=== PATIENT | female | born 1950 | race Caucasian/White ===

== ENCOUNTER → 2020-12-07 | Outpatient (CLI) | payer OTHER ==
[~2020-12-07] MED LIST: PROHANCE 279.3MG/ML 15ML VIAL As Ordered ONE
[2020-12-07 13:13] LABS: BASO % 0.4 % (0.0-1.0); HEMATOCRIT 41.4 % (36.0-47.0); HEMOGLOBIN 13.2 g/dl (12.0-15.5); LYMPH # 1.7 10^3/uL (1.5-5.0); LYMPH % 29.5 % (24.0-44.0); MEAN CORPUSCULAR HEMOGLOBIN 29.8 pg (27.0-33.0); MEAN CORPUSCULAR HGB CONC 31.9 g/dl (32.0-36.5); MEAN CORPUSCULAR VOLUME 93.5 fl (80.0-96.0); MONO # 0.3 10^3/uL (0.0-0.8); MONO % 5.7 % (2.0-8.0); NEUTROPHILS # 3.6 10^3/uL (1.5-8.5); NEUTROPHILS % 64.2 % (36.0-66.0); PLATELET COUNT, AUTOMATED 297 10^3/uL (150-450); RED BLOOD COUNT 4.43 10^6/uL (4.00-5.40); WHITE BLOOD COUNT 5.7 10^3/uL (4.0-10.0)
[2020-12-07 14:43] LABS: ALBUMIN 3.6 GM/DL (3.2-5.2); BILIRUBIN,TOTAL 0.6 MG/DL (0.2-1.0); CALCIUM LEVEL 9.1 MG/DL (8.8-10.2); CREATININE FOR GFR 1.01 MG/DL (0.55-1.30); POTASSIUM SERUM 4.1 MEQ/L (3.5-5.1); TOTAL PROTEIN 7.2 GM/DL (6.4-8.2)
--- NOTE | 2020-12-07 19:16 | REPVR ---
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 Contrast material: PROHANCE; Contrast volume: 7 ml; Contrast route: INTRAVENOUS (IV); COMPARISON: No relevant prior studies available. FINDINGS: Vertebrae: There is mild wedging of the anterior margins of T7 through T9 and abnormal signal in the superior endplate of T10 as well as T7 through T9 vertebral bodies. There is also endplate degeneration and disc space narrowing at T7-8 through T9-10 levels. Endplate degeneration appears most prominent at T7-T8 with mild enhancement post gadolinium. The bone marrow at these levels is heterogeneous with possible sclerosis of the T7-T8 endplates. Epidural space: No evidence of epidural tumor or abscess. Spinal cord: Normal signal. No cord compression. Discs/Spinal canal/Neural foramina: See "Vertebrae" finding. Soft tissues: No significant paraspinous soft tissue abnormality at the T7-T8 through T9-10 levels. IMPRESSION: There is mild wedging T7 through T9 vertebral bodies with degeneration of the intervening discs and abnormal signal within the bone marrow which could be due to degeneration. No definite evidence of discitis/osteomyelitis or metastatic disease. No compression of the thoracic spinal cord or evidence of epidural tumor. No significant abnormal enhancement. Bone marrow signal does not have the appearance of radiation change. Electronically signed by: Marquita Xiong On 12/07/2020 19:16:18 PM
== END ==
LOC: M RAD 12:04
PROVIDERS: ATTEND Internal Medicine Hematology & Oncology
DX: C50.412 Malignant neoplasm of upper-outer quadrant of left female breast (principal)
CPT/HCPCS: 36415; 72157; 80053; 85025; A9576

== ENCOUNTER 2020-12-14 08:30 | Outpatient (RCR) | payer OTHER | END 2020-12-19 | LOC: M PT 08:30 | DX: I89.0 Lymphedema, not elsewhere classified (principal) ==

== ENCOUNTER → 2020-12-27 | Outpatient (CLI) | payer OTHER ==
[~2020-12-27] MED LIST changes: +GABA-282 PO; +LETR2.5T2 PO; +LEVO100T5 PO; -PROHANCE 279.3MG/ML 15ML VIAL As Ordered ONE
--- NOTE | 2020-12-27 11:13 | REP ---
INDICATION: RT WRIST NODULE ? MASS VS CYST W/BREAST CA. COMPARISON: None. TECHNIQUE: Ultrasonography of the dorsal surface of the right wrist over a palpable abnormality. FINDINGS: In the deep subcutanea there is a 3 x 3 x 7 mm sized oval/possible tubular shaped structure with complex internal echoes. IMPRESSION: Complex somewhat cystic and somewhat solid-appearing subcutaneous structure in the dorsum of the right wrist as described above. The etiology is uncertain. Consider pre and post gadolinium enhanced MRI. <Electronically signed by aLwson Salcedo > 12/27/20 [id number]
== END ==
LOC: M RAD 10:32
PROVIDERS: ATTEND Internal Medicine Medical Oncology
DX: M25.831 Other specified joint disorders, right wrist (principal)

== ENCOUNTER → 2021-01-17 | Outpatient (CLI) | payer OTHER ==
[~2021-01-17] MED LIST changes: +PROHANCE 279.3MG/ML 15ML VIAL As Ordered ONE
--- NOTE | 2021-01-18 08:26 | REP ---
INDICATION: MASS, RT WRIST. Small mass in the dorsum of the wrist. COMPARISON: Comparison sonography December 27, 2020.. TECHNIQUE: A skin marker is affixed to the dorsal skin at the site of the palpable abnormality. Axial, coronal, and sagittal imaging planes utilized. T1, and T2 weighted scans are obtained with without fat saturation. Gadolinium enhancement dose is 13 mL of intravenous ProHance and post gadolinium enhanced imaging is acquired in all 3 planes as well. FINDINGS: Cortical and medullary bone signal intensity are normal. There is no evidence of significant joint effusion. Triangular fibrocartilage appears intact. Joint spaces are preserved. The flexor and extensor tendons are intact. No significant tendon sheath effusion is seen. Underlying the gel capsule skin marker, there is a small subcutaneous oval-shaped lesion superficial to the extensor tendons at the ulnar aspect of the wrist overlying the distal ulna. This measures 6 x 6 by 3 mm and corresponds to the nodule seen on ultrasound. This lesion is T1 hyperintense and T2 hyperintense although it is quite small and difficult to characterize. Because it is so hyperintense on pre yael T1, I do not believe there is significant enhancement. On axial T1 weighted scans, the lesion appears to align with the a linear vascular structure although it may be adjacent to this. I do not resolve a connection to a tendon sheath or a joint space. IMPRESSION: 6 mm superficial subcutaneous nodule overlying the distal ulna which is difficult to characterize because of its small size. No definite contrast enhancement. Nonspecific findings. Differential possibilities include proteinaceous fluid containing lesion such as ganglion cyst, hematoma, vascular thrombus and neoplasm. Clinical follow-up is advised.. <Electronically signed by Noel Ramos > 01/18/21 [id number]
== END ==
LOC: M RAD 15:50
PROVIDERS: ATTEND Internal Medicine Medical Oncology
DX: R22.31 Localized swelling, mass and lump, right upper limb (principal)
CPT/HCPCS: 73223; A9576

== ENCOUNTER 2021-01-18 10:00 | Outpatient (RCR) | payer OTHER ==
[~2021-01-18 10:00] MED LIST changes: -PROHANCE 279.3MG/ML 15ML VIAL As Ordered ONE
== END 2021-01-19 | disposition still patient (30) ==
LOC: M PT 10:00
DX: I89.0 Lymphedema, not elsewhere classified (principal)

== ENCOUNTER → 2021-02-07 | Outpatient (CLI) | payer OTHER ==
[~2021-02-07] MED LIST changes: +NEUR600T PO
--- NOTE | 2021-02-07 13:29 | RADONC.CN ---
Radiation Oncology Hx/Consult Radiation Oncology Consult Date of Service: Feb 07, 2021 Pt Identifier Jennifer Bowen is a 70 year old female current smoker with a history of left breast cancer [id number] ER+ OR/HER2- Grade 3 stage IIA. She had a clinically apparent LN at diagnosis which was biopsy proven. She is s/p BL mastectomy and left SLNB on 10/12/20 1/3 nodes positive, margins negative. Oncotype score was 38. She subsequently declined adjuvant chemotherapy and has started Femara. She is seen today for consideration of PMRT. Diagnosis/Treatment History Oncologic History Patient had screening CT chest in 08/16/20 which showed a left axillary enlarged node 3 cm. Mammogram on 08/17/20 showed a left breast mass. Biopsy showed IDC grade 3 ER+ OR/HER2-. She had BL mastectomies on 10/12/20 [id number] margins negative 1/3 LN+. She had delayed wound healing. Oncotype score was 38. She declined adjuvant chemotherapy after multiple opinions. She started Femara in December 2020. Breast history: 1st @ 20, 1 interrupted Menses @ 15 Menopause @ 53 OCP use 4 years HRT since menopause through diagnosis No IVF Interval History Here with her sister. Reports that she is tolerating femara well, thinks it has improved her mood. No longer taking HRT. No pain in the chest or UE BL. She had delayed healing of her mastectomy incisions, only just healed. She continues to smoke. She has no current desire for reconstruction. Appetite good and weight stable. Past Medical History: Hypothyroidism Past Surgical History: Tonsillectomy Family History: Mother breast cancer Social History: 50 pack year current smoker 1ppd Drinks occasionally Allergies / Meds Allergies: Coded Allergies: NSAIDS (Non-Steroidal Anti-Inflamma (Verified Allergy, Unknown, LIVER ISSUES, 12/27/20) Home Meds Active Scripts Letrozole (Letrozole) 2.5 Mg Tablet, 2.5 MG PO DAILY for 90 Days, #90 TAB 3 Refills Prov:MILTON SUAZO MD 12/27/20 Reported Medications Gabapentin (Neurontin) 600 Mg Tablet, 600 MG PO, TAB 02/07/21 Levothyroxine Sodium (LEVOTHYROXINE SODIUM) 100 Mcg Tablet, 1 TAB PO DAILY 12/27/20 Discontinued Reported Medications Gabapentin (Gabapentin) 300 Mg Capsule, 1 CAP PO TID 12/27/20 Review of Systems Constitutional: Denies: Chills, Fever, Weight Loss Eyes: Denies: Pain HEENT: Denies: Head Aches Skin: Denies: Rash Pulmonary: Denies: Dyspnea, Cough Cardiovascular: Denies: Chest Pain, Palpitations Gastrointestinal: Denies: Nausea, Vomiting Hematologic: Denies: Bruising, Bleeding Excessively Endocrine: Denies: Cold Intolerance Musculoskeletal: Denies: Neck pain, Arm pain, Hand pain Neurological: Denies: Weakness, Numbness Psych: Reports: Mood Normal Vital Signs Wt 152 lbs T 96.2 P 56 RR 20 BP 119/73 O2 99% Pain 0 Fatigue 0 General Exam: Alert, Cooperative, No Acute Distress Eye Exam: PERRLA, EOMI ENT EXAM: Atraumatic Neck Exam: Supple; Negative: Lymphadenopathy Chest Exam: Clear to auscultation Heart Exam: Rate Normal Breast Exam: Other Breast Findings (BL mastecomy incisions, deeply furrowed, incisions closed. No drainage. No axillary lesions BL, CW skin without lesions. ) Extremity Exam: Negative: Edema Skin Exam: Nl turgor and temperature Neuro Exam: Normal Gait, Normal Speech, Cranial Nerves 3-12 NL Psych Exam: Mental status NL Diagnostic and Laboratory Diagnostic Review Radiologic images, relevant labs and pathology reports were personally reviewed and discussed with Ms. Bowen. Assessment and Plan Impression Ms. Bowen is a 70 year old female with a history of current smoker with a his tory of left breast cancer [id number] ER+ OR/HER2- Grade 3 stage IIA. She had a clinically apparent LN at diagnosis which was biopsy proven. She is s/p BL mastectomy and left SLNB on 10/12/20 1/3 nodes positive, margins negative. Oncotype score was 38. She subsequently declined adjuvant chemotherapy and has started Femara. She is seen today for consideration of PMRT. Stage left breast cancer [id number] ER+ OR/HER2- Grade 3 stage IIA Performance Status ECOG 0 Plan We had an extensive discussion with Ms. Bowen regarding the diagnosis at hand and available therapeutic options. She has healed from her mastectomies with some difficulty, discussed this is likely related to tobacco use. On exam however she is fit for RT at this time. She declined adjuvant chemotherapy, this combined with her pathologic findings warrant PMRT. I recommend 50.4 Gy in 28 fractions with VMAT and DIBH technique to adequately treat the node bearing areas (including the IMNs) and limit doses to adjoining critical structures like heart, LAD, and lung. We discussed the logistics of receiving radiation therapy in detail including the need for a 1-time planning session. This can occur next week. She has travel south planned for 04/05/21 therefore we will work to expedite her care. We discussed the side effects of RT including skin reaction, fatigue, and internal scarring (fibrosis). We also discussed smoking cessation for 4 minutes. She is not ready for a quit attempt at this time. She will consider it in the future. After discussing the risks, benefits and alternatives to radiation therapy, Ms. Bowen was amenable to pursuing radiotherapy. All questions were answered to the patient's satisfaction. We instructed the patient that if there were any questions,concerns or changes in clinical status in the interim to contact us. Recommendations PMRT 50.4 Gy in 28 fractions with VMAT/DIBH Simulation next week Has pending travel south on 04/05/21 Billing Statement Total time of [47] minutes was spent preparing for the visit [3], obtaining HPI [8], examining the patient [5], reviewing diagnostic tests [7], discussing management options [11], coordinating care [2], and writing this note [7]. ALLISON DALEY MD Feb 07, 2021 13:29
== END ==
LOC: M ONCR 08:54
PROVIDERS: ATTEND General Practice
DX: C50.912 Malignant neoplasm of unspecified site of left female breast (principal); F17.210 Nicotine dependence, cigarettes, uncomplicated; Z79.890 Hormone replacement therapy; Z79.899 Other long term (current) drug therapy; Z80.3 Family history of malignant neoplasm of breast; Z88.6 Allergy status to analgesic agent; Z90.13 Acquired absence of bilateral breasts and nipples

== ENCOUNTER 2021-02-15 10:44 | Outpatient (RCR) | payer OTHER ==
[2021-02-28] MEDS ORDERED: LEVO88TA3 PO (19:05)
[2021-03-07] MEDS ORDERED: PREN1CHW6 PO (11:08)
[2021-03-12] MEDS ORDERED: LETR2.5T2 PO (14:29)
[2021-03-12] MEDS ORDERED: LEVO88TA3 PO (14:29)
[2021-03-14] MEDS ORDERED: MAGICMW SSP (10:19)
[2021-03-27] MEDS ORDERED: ANAS1TAB2 PO (11:45)
[2021-03-27] MEDS ORDERED: ALEN70TA82 PO (11:52)
[2021-04-01] MEDS ORDERED: OXYC-517 PO (10:59)
[2021-04-01] MEDS ORDERED: PRED20TA PO (10:59)
[2021-05-31] MEDS ORDERED: LEVO88TA3 PO (16:03)
== END 2021-02-19 | disposition home or self-care (01) ==
LOC: M PT 10:44
PROVIDERS: ATTEND Surgery
DX: I89.0 Lymphedema, not elsewhere classified (principal)

== ENCOUNTER 2021-02-15 14:29 | Outpatient (RCR) | payer OTHER ==
[2021-02-28] MEDS ORDERED: LEVO88TA3 PO (19:05)
[2021-03-07] MEDS ORDERED: PREN1CHW6 PO (11:08)
[2021-03-12] MEDS ORDERED: LEVO88TA3 PO (14:29)
[2021-03-12] MEDS ORDERED: LETR2.5T2 PO (14:29)
[2021-03-14] MEDS ORDERED: MAGICMW SSP (10:19)
[2021-03-27] MEDS ORDERED: ANAS1TAB2 PO (11:45)
[2021-03-27] MEDS ORDERED: ALEN70TA82 PO (11:52)
[2021-04-01] MEDS ORDERED: PRED20TA PO (10:59)
[2021-04-01] MEDS ORDERED: OXYC-517 PO (10:59)
[2021-05-31] MEDS ORDERED: LEVO88TA3 PO (16:03)
== END 2021-02-19 ==
LOC: M ONCR 14:29
PROVIDERS: ATTEND General Practice
DX: C50.112 Malignant neoplasm of central portion of left female breast (principal)

== ENCOUNTER → 2021-02-27 | Outpatient (CLI) | payer OTHER ==
[~2021-02-27] MED LIST changes: +LEVO88TA3 PO
--- NOTE | 2021-02-27 12:04 | DEXAMM ---
INDICATION: ON AI THERAPY/BREAST CA/POSSIBLE OSTEOPENIA. COMPARISON: None. TECHNIQUE: Bone density was measured using dual-energy x-ray absorptiometry (DEXA). FINDINGS: AP SPINE L1-L4 BMD 1.122 g/cm2 Young Adult T-Score -0.6 Age Matched Z-Score 1.1. LT FEMUR, TOTAL BMD 0.777 g/cm2 Young Adult T-Score -1.8 Age Matched Z-Score -0.5. LT NECK BMD 0.744 g/cm2 Young Adult T-Score -2.1 Age Matched Z-Score -0.5. RT FEMUR, TOTAL BMD 0.761 g/cm2 Young Adult T-Score -2.0 Age Matched Z-Score -0.6. RT NECK BMD 0.755 g/cm2 Young Adult T-Score -2.0 Age Matched Z-Score -0.4. IMPRESSION: There is normal bone density of the spine. There is low bone density of the left hip. There is low bone density of the right hip. FOLLOW-UP: Recommendation for the next bone density exam: 2 years. <Electronically signed by Krzysztof Pearl > 02/27/21 1200
== END ==
LOC: M WHC 10:04
PROVIDERS: ATTEND Internal Medicine Medical Oncology
DX: M81.0 Age-related osteoporosis without current pathological fracture (principal)

== ENCOUNTER → 2021-03-21 | Outpatient (RCR) | payer OTHER ==
[~2021-03-21] MED LIST changes: +MAGICMW SSP; +PREN1CHW6 PO
== END | disposition home or self-care (01) ==
LOC: M PT 03-06 09:00
DX: I89.0 Lymphedema, not elsewhere classified (principal)

== ENCOUNTER → 2021-03-21 | Outpatient (RCR) | payer OTHER | LOC: M ONCR 02-21 13:31 | PROVIDERS: ATTEND General Practice | DX: C50.112 Malignant neoplasm of central portion of left female breast (principal) ==

== ENCOUNTER 2021-04-03 10:25 | Outpatient (RCR) | payer OTHER ==
[~2021-04-03 10:25] MED LIST changes: +ALEN70TA82 PO; +ANAS1TAB2 PO; +OXYC-517 PO; +PRED20TA PO
[2021-04-04] MEDS ORDERED: ANAS1TAB2 PO (16:18)
[2021-04-11] MEDS ORDERED: OXYC-517 PO (13:49)
== END 2021-04-21 ==
LOC: M ONCR 10:25
PROVIDERS: ATTEND General Practice
DX: C50.112 Malignant neoplasm of central portion of left female breast (principal); L59.8 Other specified disorders of the skin and subcutaneous tissue related to radiation
CPT/HCPCS: 77336; 77385; G0463

== ENCOUNTER → 2021-04-11 | Outpatient (CLI) | payer OTHER ==
--- NOTE | 2021-04-11 13:49 | RADENCPD ---
Date/Time of Encounter Date of Encounter: Apr 11, 2021 Time of Encounter: 13:46 Encounter Jennifer came in for a skin check today. She reports ongoing pain under the left axilla and superolateral left chest. The oxycodone helps she is taking it BID with good effect. She is continuing aquaphor to the affected skin. On exam she has a patch of moist desquamation in the left axilla, no re- epithelialization noted as of yet. The left chest is hyperpigmented with dry peeling. Assessment: Ongoing CTCAE grade 2 skin reaction Plan: Polymem foam to left axilla daily. Continue aquaphor to remainder of affected skin. Continue oxycodone PRN. Follow up in 2 weeks. ALLISON DALEY MD Apr 11, 2021 13:49
== END ==
LOC: M ONCR 13:11
PROVIDERS: ATTEND General Practice
DX: C50.112 Malignant neoplasm of central portion of left female breast (principal); L57.9 Skin changes due to chronic exposure to nonionizing radiation, unspecified; Z92.3 Personal history of irradiation

== ENCOUNTER → 2021-04-15 | Outpatient (CLI) | payer OTHER ==
--- NOTE | 2021-04-19 15:01 | REP ---
INDICATION: BREAST CA. COMPARISON: 08/31/2020 [facility]. TECHNIQUE: CT chest performed without the use of intravenous contrast. Sagittal and coronal reconstruction images are performed. FINDINGS: Lungs: No infiltrate is seen in either lung. There is no suspicious nodule. Mediastinum: No gross adenopathy. Miriam: No gross adenopathy. Axilla: No gross adenopathy. Pleura: No effusion. Heart: Not enlarged. Thoracic aorta: No aneurysm. Upper abdominal structures: Grossly unremarkable. Visualized osseous structures: There are degenerative changes of the spine. The sclerosis in the T7 through T10 vertebral bodies is unchanged.. Multiple metallic clips are seen throughout the chest wall and axillary regions status post bilateral mastectomy. IMPRESSION: No pulmonary nodule. No evidence of adenopathy. Sclerosis in the T7 through T10 vertebral bodies is unchanged. Status post bilateral mastectomy. <Electronically signed by Krzysztof Pearl > 04/19/21 [id number]
== END ==
LOC: M RAD 13:14
PROVIDERS: ATTEND Nurse Practitioner Adult Health
DX: C50.912 Malignant neoplasm of unspecified site of left female breast (principal); Z90.13 Acquired absence of bilateral breasts and nipples

== ENCOUNTER 2021-04-18 09:15 | Outpatient (RCR) | payer OTHER | END 2021-04-21 | LOC: M PT 09:15 | DX: I89.0 Lymphedema, not elsewhere classified (principal) ==

== ENCOUNTER 2021-04-23 10:09 | Outpatient (RCR) | payer OTHER ==
[2021-05-21] MEDS ORDERED: ONDA-83 PO (14:53)
[2021-05-31] MEDS ORDERED: LEVO88TA3 PO (16:03)
[2021-07-30] MEDS ORDERED: LEVO88TA3 PO (08:14)
== END 2021-05-21 | disposition home or self-care (01) ==
LOC: M PT 10:09
PROVIDERS: ATTEND Surgery
DX: I89.0 Lymphedema, not elsewhere classified (principal)

== ENCOUNTER → 2021-04-25 | Outpatient (CLI) | payer OTHER ==
--- NOTE | 2021-04-25 13:31 | RADENCPD ---
Date/Time of Encounter Date of Encounter: Apr 25, 2021 Time of Encounter: 13:28 Encounter Jennifer came in for a skin check. She reports she is feeling much better, the left axilla has re-epithelialized and no longer hurts at all. She still has some peeling in the left inferior CW. On exam there is resolving CTCAE grade 1 radiation dermatitis with dry desquamation. No tenderness or impaired ROM of the LUE. She is happy to be healed. She plans to go to [place] next month and come back in July 2021. I will see her at that time. She also has not heard back from Dr. Evans's office for a consultation. I will follow up on this and see that she gets in before she leaves for [place]. Plan: Follow up in July 2021 Will initiate survivorship phase of care at that time ALLISON DALEY MD Apr 25, 2021 13:31
== END ==
LOC: M ONCR 12:57
PROVIDERS: ATTEND General Practice
DX: C50.112 Malignant neoplasm of central portion of left female breast (principal); Z92.3 Personal history of irradiation

== ENCOUNTER → 2021-11-28 | Outpatient (CLI) | payer OTHER ==
[~2021-11-28] MED LIST changes: +EXEM25TA PO; +ONDA-83 PO
== END ==
LOC: M ONCR 10:00
PROVIDERS: ATTEND General Practice
DX: Z08 Encounter for follow-up examination after completed treatment for malignant neoplasm (principal); C50.912 Malignant neoplasm of unspecified site of left female breast; C77.3 Secondary and unspecified malignant neoplasm of axilla and upper limb lymph nodes; R53.83 Other fatigue; I97.2 Postmastectomy lymphedema syndrome; Z90.13 Acquired absence of bilateral breasts and nipples; Z92.3 Personal history of irradiation; Z79.899 Other long term (current) drug therapy; Z79.811 Long term (current) use of aromatase inhibitors; F17.210 Nicotine dependence, cigarettes, uncomplicated

== ENCOUNTER 2021-12-16 15:41 | Outpatient (RCR) | payer OTHER | END 2021-12-19 | LOC: M PT 15:41 | PROVIDERS: ATTEND General Practice | DX: I89.0 Lymphedema, not elsewhere classified (principal); C50.112 Malignant neoplasm of central portion of left female breast ==

== ENCOUNTER 2022-01-13 09:59 | Outpatient (RCR) | payer OTHER | END 2022-01-19 | LOC: M PT 09:59 | PROVIDERS: ATTEND General Practice | DX: I89.0 Lymphedema, not elsewhere classified (principal); C50.912 Malignant neoplasm of unspecified site of left female breast ==

== ENCOUNTER 2022-02-17 08:30 | Outpatient (RCR) | payer OTHER ==
[~2022-02-17 08:30] MED LIST changes: +MASTECTOMY BRA BILAT XX
== END 2022-02-19 ==
LOC: M PT 08:30
PROVIDERS: ATTEND General Practice
DX: C50.112 Malignant neoplasm of central portion of left female breast (principal)

== ENCOUNTER → 2022-02-28 | Outpatient (CLI) | payer OTHER | LOC: M ONCR 14:43 | PROVIDERS: ATTEND General Practice | DX: I89.0 Lymphedema, not elsewhere classified (principal); R22.2 Localized swelling, mass and lump, trunk; R07.9 Chest pain, unspecified; Z79.891 Long term (current) use of opiate analgesic ==

== ENCOUNTER 2022-03-18 10:30 | Outpatient (RCR) | payer OTHER | END 2022-03-21 | LOC: M PT 10:30 | PROVIDERS: ATTEND General Practice | DX: C50.112 Malignant neoplasm of central portion of left female breast (principal) ==

== ENCOUNTER 2022-03-27 09:48 | Outpatient (RCR) | payer OTHER ==
[2022-03-28] MEDS ORDERED: GABA-1171 PO (11:15)
[2022-03-28] MEDS ORDERED: OXYC-517 PO (13:33)
[2022-04-01] MEDS ORDERED: LEVO100T5 PO (15:28)
== END 2022-04-21 ==
LOC: M PT 09:48
PROVIDERS: ATTEND General Practice
DX: C50.112 Malignant neoplasm of central portion of left female breast (principal)

== ENCOUNTER → 2022-03-28 | Outpatient (CLI) | payer OTHER ==
[~2022-03-28] MED LIST changes: +GABA-1171 PO
== END ==
LOC: M ONCR 11:24
PROVIDERS: ATTEND General Practice
DX: C50.912 Malignant neoplasm of unspecified site of left female breast (principal); I89.0 Lymphedema, not elsewhere classified; Z79.890 Hormone replacement therapy; Z87.891 Personal history of nicotine dependence; Z79.899 Other long term (current) drug therapy; Z79.891 Long term (current) use of opiate analgesic; Z88.6 Allergy status to analgesic agent; Z90.13 Acquired absence of bilateral breasts and nipples

== ENCOUNTER → 2022-03-28 | Outpatient (CLI) | payer OTHER | LOC: M RAD 12:17 | PROVIDERS: ATTEND General Practice | DX: C50.112 Malignant neoplasm of central portion of left female breast (principal) ==

== ENCOUNTER → 2022-09-05 | Outpatient (CLI) | payer OTHER ==
[~2022-09-05] MED LIST changes: +GASTROGRAFIN SOLUTION 30ML As Ordered ONE; +ISOVUE-370 76% 100ML VIAL As Ordered ONE; +LORA1TAB4 PO
== END ==
LOC: M RAD 10:03
PROVIDERS: ATTEND General Practice
DX: C50.112 Malignant neoplasm of central portion of left female breast (principal); M85.80 Other specified disorders of bone density and structure, unspecified site; Z90.49 Acquired absence of other specified parts of digestive tract
CPT/HCPCS: 71260; 74177; Q9963; Q9967

== ENCOUNTER → 2022-09-09 | Outpatient (CLI) | payer OTHER ==
[~2022-09-09] MED LIST changes: -GASTROGRAFIN SOLUTION 30ML As Ordered ONE; -ISOVUE-370 76% 100ML VIAL As Ordered ONE
== END ==
LOC: M RAD 07:24
PROVIDERS: ATTEND General Practice
DX: C50.112 Malignant neoplasm of central portion of left female breast (principal)
CPT/HCPCS: 78306; A9503

== ENCOUNTER → 2022-09-17 | Outpatient (CLI) | payer OTHER ==
[~2022-09-17] MED LIST changes: +LEVO25TA5 PO; +LIDO1PAD TOP
== END ==
LOC: M ONCR 10:49
PROVIDERS: ATTEND General Practice
DX: C50.912 Malignant neoplasm of unspecified site of left female breast (principal); I89.0 Lymphedema, not elsewhere classified; Z79.811 Long term (current) use of aromatase inhibitors; Z79.899 Other long term (current) drug therapy; Z87.891 Personal history of nicotine dependence; Z88.6 Allergy status to analgesic agent; Z90.13 Acquired absence of bilateral breasts and nipples; Z92.3 Personal history of irradiation

== ENCOUNTER → 2022-10-22 | Outpatient (CLI) | payer OTHER ==
[~2022-10-22] MED LIST changes: +BREAST PROSTHESIS B XX; +CYCL5TAB PO; +LORA1TAB23 PO; -LORA1TAB4 PO
== END ==
LOC: M ONCR 10:12
PROVIDERS: ATTEND General Practice
DX: C50.112 Malignant neoplasm of central portion of left female breast (principal); Z79.891 Long term (current) use of opiate analgesic

== ENCOUNTER → 2022-12-30 | Outpatient (CLI) | payer OTHER | LOC: M ONCR 10:01 | PROVIDERS: ATTEND General Practice | DX: I97.2 Postmastectomy lymphedema syndrome (principal); Z79.891 Long term (current) use of opiate analgesic; Z90.12 Acquired absence of left breast and nipple ==

== ENCOUNTER → 2023-03-02 | Outpatient (CLI) | payer OTHER | LOC: M WHC 10:38 | PROVIDERS: ATTEND Specialist | DX: M81.0 Age-related osteoporosis without current pathological fracture (principal) ==

== ENCOUNTER → 2023-03-10 | Outpatient (REF) | payer OTHER ==
[~2023-03-10] MED LIST changes: +TURKEY TAIL
== END ==
LOC: M LAB REF 15:15
DX: E53.8 Deficiency of other specified B group vitamins (principal)

== ENCOUNTER → 2023-06-19 | Outpatient (CLI) | payer OTHER ==
[~2023-06-19] MED LIST changes: +LEVO100C PO; +LEVO125T4 PO
[2023-06-19 10:49] LABS: BASO % 0.2 % (0.0-1.0); EOS # 0.1 10^3/uL (0.0-0.5); EOS % 1.3 % (0.0-3.0); HEMATOCRIT 41.3 % (36.0-47.0); HEMOGLOBIN 13.9 g/dl (12.0-15.5); LYMPH # 1.2 10^3/uL (1.5-5.0); LYMPH % 24.5 % (24.0-44.0); MEAN CORPUSCULAR HEMOGLOBIN 31.9 pg (27.0-33.0); MEAN CORPUSCULAR HGB CONC 33.7 g/dl (32.0-36.5); MEAN CORPUSCULAR VOLUME 94.7 fl (80.0-96.0); MONO # 0.3 10^3/uL (0.0-0.8); MONO % 6.3 % (2.0-8.0); NEUTROPHILS # 3.2 10^3/uL (1.5-8.5); NEUTROPHILS % 67.3 % (36.0-66.0); PLATELET COUNT, AUTOMATED 242 10^3/uL (150-450); RED BLOOD COUNT 4.36 10^6/uL (4.00-5.40); WHITE BLOOD COUNT 4.7 10^3/uL (4.0-10.0)
[2023-06-19 11:18] LABS: ALBUMIN 3.6 G/DL (3.2-5.2); BILIRUBIN,TOTAL 0.4 MG/DL (0.3-1.2); CALCIUM LEVEL 8.3 MG/DL (8.3-10.6); CREATININE FOR GFR 1.03 MG/DL (0.55-1.30); GLOMERULAR FILTRATION RATE 56.4 (>39); POTASSIUM SERUM 3.7 MMOL/L (3.5-5.1); TOTAL PROTEIN 6.6 G/DL (5.7-8.2)
[2023-06-19 11:22] LABS: FREE T4 1.28 NG/DL (0.89-1.76); THYROID STIMULATING HORMONE 2.271 uIU/ML (0.55-4.78)
== END ==
LOC: M ONCR 10:27
PROVIDERS: ATTEND General Practice
DX: C50.112 Malignant neoplasm of central portion of left female breast (principal); I89.0 Lymphedema, not elsewhere classified; Z71.2 Person consulting for explanation of examination or test findings; Z79.890 Hormone replacement therapy; Z79.891 Long term (current) use of opiate analgesic; Z79.899 Other long term (current) drug therapy; Z87.891 Personal history of nicotine dependence; Z88.6 Allergy status to analgesic agent; Z90.13 Acquired absence of bilateral breasts and nipples; Z92.3 Personal history of irradiation
CPT/HCPCS: 36415; 80053; 84439; 84443; 85025; 86300; G0463

== ENCOUNTER → 2023-12-14 | Outpatient (REF) | payer OTHER ==
[2023-12-14 18:40] LABS: ALBUMIN 3.8 G/DL (3.2-5.2); BILIRUBIN,TOTAL 0.4 MG/DL (0.3-1.2); CALCIUM LEVEL 11.4 MG/DL (8.3-10.6); CHOLESTEROL RISK RATIO 4.73 (<5); CREATININE FOR GFR 1.32 MG/DL (0.55-1.30); FREE T4 1.95 NG/DL (0.89-1.76); GLOMERULAR FILTRATION RATE 42.2 (>39); HDL CHOLESTEROL 47.9 MG/DL (>40); LDL CHOLESTEROL 143.5 MG/DL (<100); NON-HDL-C 179.1 MG/DL; POTASSIUM SERUM 5.3 MMOL/L (3.5-5.1); THYROID STIMULATING HORMONE 0.034 uIU/ML (0.55-4.78)
== END ==
LOC: M SFHCCLAY 09:54
PROVIDERS: ATTEND Nurse Practitioner Family
DX: M81.0 Age-related osteoporosis without current pathological fracture (principal); Z85.3 Personal history of malignant neoplasm of breast; Z79.899 Other long term (current) drug therapy

== ENCOUNTER → 2023-12-23 | Outpatient (CLI) | payer OTHER | LOC: M ONCR 09:31 | PROVIDERS: ATTEND General Practice | DX: Z08 Encounter for follow-up examination after completed treatment for malignant neoplasm (principal); I89.0 Lymphedema, not elsewhere classified; Z85.3 Personal history of malignant neoplasm of breast; Z79.810 Long term (current) use of selective estrogen receptor modulators (SERMs); Z79.899 Other long term (current) drug therapy; Z87.891 Personal history of nicotine dependence; Z90.13 Acquired absence of bilateral breasts and nipples; Z92.3 Personal history of irradiation ==

== ENCOUNTER → 2024-02-04 | Outpatient (REF) | payer OTHER ==
[2024-02-04 18:23] LABS: CALCIUM LEVEL 10.1 MG/DL (8.3-10.6); CHOLESTEROL RISK RATIO 5.1 (<5); CREATININE FOR GFR 1.2 MG/DL (0.55-1.30); FREE T4 1.66 NG/DL (0.89-1.76); GLOMERULAR FILTRATION RATE 47.1 (>39); HDL CHOLESTEROL 43.5 MG/DL (>40); LDL CHOLESTEROL 123.7 MG/DL (<100); NON-HDL-C 178.5 MG/DL; POTASSIUM SERUM 4.3 MMOL/L (3.5-5.1); PTH INTACT 35.4 PG/ML (18.5-88.0); THYROID STIMULATING HORMONE 0.279 uIU/ML (0.55-4.78)
== END ==
LOC: M SFHCCLAY 09:25
PROVIDERS: ATTEND Nurse Practitioner Family
DX: E03.9 Hypothyroidism, unspecified (principal); M81.0 Age-related osteoporosis without current pathological fracture; E83.52 Hypercalcemia; E78.2 Mixed hyperlipidemia; Z85.3 Personal history of malignant neoplasm of breast

== ENCOUNTER → 2024-06-01 | Outpatient (CLI) | payer OTHER ==
[~2024-06-01] MED LIST changes: -CYCL5TAB PO; +CYCL5TAB4 PO; +GABA-1172 PO; -GABA-282 PO; +XANA0.5T PO
== END ==
LOC: M PLARAD 08:00
PROVIDERS: ATTEND Internal Medicine Hematology & Oncology
DX: C50.812 Malignant neoplasm of overlapping sites of left female breast (principal); Z90.13 Acquired absence of bilateral breasts and nipples
CPT/HCPCS: 78815; A9552

== ENCOUNTER → 2024-06-29 | Outpatient (CLI) | payer MEDICARE | LOC: M ONCR 09:04 | PROVIDERS: ATTEND General Practice | DX: C50.112 Malignant neoplasm of central portion of left female breast (principal); R07.89 Other chest pain; Z87.891 Personal history of nicotine dependence; Z90.13 Acquired absence of bilateral breasts and nipples; Z92.3 Personal history of irradiation; Z79.811 Long term (current) use of aromatase inhibitors; Z88.6 Allergy status to analgesic agent; Z79.899 Other long term (current) drug therapy ==

== ENCOUNTER 2024-09-14 09:10 | Outpatient (RCR) | payer MEDICARE ==
[~2024-09-14 09:10] MED LIST changes: +VENL75CA47
== END 2024-09-19 ==
LOC: M PT 09:10
PROVIDERS: ATTEND Specialist
DX: I89.0 Lymphedema, not elsewhere classified (principal)

== ENCOUNTER 2024-10-05 09:15 | Outpatient (RCR) | payer MEDICARE ==
[~2024-10-05 09:15] MED LIST changes: -LEVO100C PO; +LEVO100C2 PO
== END 2024-10-19 ==
LOC: M PT 09:15
PROVIDERS: ATTEND Specialist
DX: I89.0 Lymphedema, not elsewhere classified (principal)

== ENCOUNTER → 2024-12-27 | Outpatient (CLI) | payer MEDICARE | LOC: M ONCR 09:19 | PROVIDERS: ATTEND General Practice | DX: C50.112 Malignant neoplasm of central portion of left female breast (principal); I89.0 Lymphedema, not elsewhere classified; F17.210 Nicotine dependence, cigarettes, uncomplicated; Z79.899 Other long term (current) drug therapy; Z88.6 Allergy status to analgesic agent; Z90.13 Acquired absence of bilateral breasts and nipples ==

== ENCOUNTER → 2025-03-09 | Outpatient (CLI) | payer MEDICARE ==
[~2025-03-09] MED LIST changes: +ISOVUE-370 76% 100 ML VIAL As Ordered ONE
== END ==
LOC: M RAD 16:14
DX: C50.919 Malignant neoplasm of unspecified site of unspecified female breast (principal)
CPT/HCPCS: 71260; 74177; Q9967

== ENCOUNTER → 2025-03-16 | Outpatient (REF) | payer MEDICARE ==
[~2025-03-16] MED LIST changes: -ISOVUE-370 76% 100 ML VIAL As Ordered ONE
[2025-03-16 18:58] LABS: FREE T4 1.61 NG/DL (0.89-1.76)
[2025-03-16 19:01] LABS: ALT/SGPT 15.0 U/L (7.0-40); AST/SGOT 20.0 U/L (<34); CALCIUM LEVEL 10.3 MG/DL (8.3-10.6); CARBON DIOXIDE LEVEL 32.0 MMOL/L (20-31); CHLORIDE LEVEL 104.0 MMOL/L (98-107); CHOLESTEROL LEVEL 244.0 MG/DL (<200); CHOLESTEROL RISK RATIO 4.82 (<5); CREATININE FOR GFR 1.63 MG/DL (0.55-1.30); GLOMERULAR FILTRATION RATE 33.3 (>39); LDL CHOLESTEROL 143.6 MG/DL (<100); NON-HDL-C 193.4 MG/DL; POTASSIUM SERUM 3.3 MMOL/L (3.5-5.1); SODIUM LEVEL 142.0 MMOL/L (136-145); TRIGLYCERIDES LEVEL 249.0 MG/DL (<150)
== END ==
LOC: M SFHCCLAY 13:40
PROVIDERS: ATTEND Nurse Practitioner Family
DX: M81.0 Age-related osteoporosis without current pathological fracture (principal); E03.9 Hypothyroidism, unspecified; Z85.3 Personal history of malignant neoplasm of breast; F17.210 Nicotine dependence, cigarettes, uncomplicated

== ENCOUNTER → 2025-03-30 | Outpatient (CLI) | payer MEDICARE ==
[~2025-03-30] MED LIST changes: +DIAZ5TAB PO; +LORA2TAB15 PO
== END ==
LOC: M WHC 14:42
PROVIDERS: ATTEND Student in an Organized Health Care Education/Training Program
DX: M85.80 Other specified disorders of bone density and structure, unspecified site (principal); Z85.3 Personal history of malignant neoplasm of breast; Z79.899 Other long term (current) drug therapy; M85.851 Other specified disorders of bone density and structure, right thigh; M85.852 Other specified disorders of bone density and structure, left thigh

== ENCOUNTER → 2025-04-04 | Outpatient (CLI) | payer MEDICARE | LOC: M PLARAD 14:59 | PROVIDERS: ATTEND Student in an Organized Health Care Education/Training Program | DX: C50.812 Malignant neoplasm of overlapping sites of left female breast (principal); Z90.13 Acquired absence of bilateral breasts and nipples | CPT/HCPCS: 78815; A9552 ==

== ENCOUNTER → 2025-04-17 | Outpatient (CLI) | payer MEDICARE ==
[~2025-04-17] MED LIST changes: +DENO60SY2 SC
== END ==
LOC: M RAD 07:37
PROVIDERS: ATTEND Nurse Practitioner Family
DX: N18.32 Chronic kidney disease, stage 3b (principal)

== ENCOUNTER → 2025-04-21 | Outpatient (RCR) | payer MEDICARE | LOC: M PT 04-13 09:14 | PROVIDERS: ATTEND Specialist | DX: I89.0 Lymphedema, not elsewhere classified (principal) ==

== ENCOUNTER 2025-05-04 12:15 | Day surgery (SDC) | payer MEDICARE ==
[~2025-05-04] VITALS: Ht 157.5 cm; Wt 66.7 kg
[~2025-05-04 12:15] MED LIST changes: +GLYCOPYRROLATE INJ 0.2 MG/ML 2 ML VIAL As Ordered ONE; +LIDOCAINE 2% 100 MG/5 ML SDV (FOR ANES.) As Ordered ONE
[2025-05-04 13:54] VITALS: TEMP 97.9
[2025-05-04 14:10] VITALS: BP 112/71; O2SAT 98
== END 2025-05-04 14:25 | disposition home or self-care (01) ==
LOC: M OPP 12:15
PROVIDERS: ATTEND Surgery
DX: Z12.11 Encounter for screening for malignant neoplasm of colon (principal); D12.6 Benign neoplasm of colon, unspecified; K57.30 Diverticulosis of large intestine without perforation or abscess without bleeding; K21.00 Gastro-esophageal reflux disease with esophagitis, without bleeding; R93.3 Abnormal findings on diagnostic imaging of other parts of digestive tract; G47.30 Sleep apnea, unspecified; Z88.6 Allergy status to analgesic agent; Z79.891 Long term (current) use of opiate analgesic; Z79.899 Other long term (current) drug therapy
CPT/HCPCS: 43235; 45385; 88305; J1596

== ENCOUNTER → 2025-05-08 | Outpatient (CLI) | payer MEDICARE ==
[~2025-05-08] MED LIST changes: -GLYCOPYRROLATE INJ 0.2 MG/ML 2 ML VIAL As Ordered ONE; -LIDOCAINE 2% 100 MG/5 ML SDV (FOR ANES.) As Ordered ONE
[2025-05-08 09:35] LABS: BASO # 0.0 10^3/uL (0.0-0.2); BASO % 0.4 % (0.0-1.0); EOS # 0.0 10^3/uL (0.0-0.5); EOS % 0.9 % (0.0-3.0); LYMPH # 0.9 10^3/uL (1.5-5.0); LYMPH % 19.7 % (24.0-44.0); MONO # 0.3 10^3/uL (0.0-0.8); MONO % 5.9 % (2.0-8.0); NEUTROPHILS # 3.3 10^3/uL (1.5-8.5); NEUTROPHILS % 72.9 % (36.0-66.0); PLATELET COUNT, AUTOMATED 254 10^3/uL (150-450)
[2025-05-08 10:07] LABS: ALT/SGPT 11.0 U/L (7.0-40); AST/SGOT 20.0 U/L (<34); CALCIUM LEVEL 9.8 MG/DL (8.3-10.6); CARBON DIOXIDE LEVEL 29.0 MMOL/L (20-31); CHLORIDE LEVEL 106.0 MMOL/L (98-107); CREATININE FOR GFR 1.11 MG/DL (0.55-1.30); GLOMERULAR FILTRATION RATE 52.8 (>39); POTASSIUM SERUM 4.0 MMOL/L (3.5-5.1); SODIUM LEVEL 143.0 MMOL/L (136-145)
[2025-05-08 10:24] LABS: CA15-3 ANTIGEN 60.5 U/ML (<32.4)
== END ==
LOC: M LAB 09:05
PROVIDERS: ATTEND Student in an Organized Health Care Education/Training Program
DX: C50.919 Malignant neoplasm of unspecified site of unspecified female breast (principal)

== ENCOUNTER 2025-05-11 08:30 | Outpatient (RCR) | payer MEDICARE | END 2025-05-21 | LOC: M PT 08:30 | PROVIDERS: ATTEND Specialist | DX: I89.0 Lymphedema, not elsewhere classified (principal); Z85.3 Personal history of malignant neoplasm of breast ==

== ENCOUNTER 2025-06-12 08:30 | Outpatient (RCR) | payer MEDICARE ==
[2025-06-26] MEDS ORDERED: EXEM25TA PO (11:07)
== END 2025-06-21 ==
LOC: M PT 08:30
PROVIDERS: ATTEND Specialist
DX: I89.0 Lymphedema, not elsewhere classified (principal)